=== PATIENT | male | born 1955 | race African-American/Black ===

== ENCOUNTER 2023-06-23 16:45 | Inpatient (IN) | payer MEDICARE, OTHER, SELFPAY ==
[2023-06-23] VITALS (10 sets, daily range): BP systolic 101–141; BP diastolic 42–119; PULSE 86; BMI 22.1; BMI 22.2
[2023-06-23 13:45] LABS: % Basophils 0.7 % (0-2); % Eosinophils 4.4 % (0-6); % Immature Granulocytes 0.6 % (0-0.5); % Lymphocytes 11.3 % (20.5-51.1); % Monocytes 6.4 % (1.7-9.3); % Neutrophils 76.6 % (42.2-75.2); Absolute Basophils 0.1 10^3/uL (0-0.2); Absolute Eosinophils 0.4 10^3/uL (0-0.7); Absolute Immature Granulocytes 0.1 10^3/uL (0-0.05); Absolute Monocytes 0.5 10^3/uL (0.1-0.6); Absolute Neutrophils 6.5 10^3/uL (1.4-6.5); Hemoglobin 11.7 g/dL (13.0-18.0); Mean Corp Hgb Conc. 34.4 g/dL (33.0-37.0); Mean Corpuscular Hgb 29.5 pg (27.0-31.0); Mean Corpuscular Volume 85.9 fL (80.0-94.0); Mean Platelet Volume 10.8 fL (7.4-10.4); Nucleated Red Blood Cells % 0 % (-); Platelet Count 226 10^3/uL (130-400); Red Blood Cell Count 3.96 10^6/uL (4.70-6.10); Red Cell Dist. Width 13.5 % (11.5-14.5); White Blood Cell Count 8.4 10^3/uL (4.8-10.8)
[2023-06-23 14:01] LABS: ALT (SGPT) 53 U/L (0-50); AST (SGOT) 44 U/L (17-59); Albumin 4.1 g/dl (3.5-5.0); Alkaline Phosphatase 134 U/L (38-126); Blood Urea Nitrogen 9 mg/dl (9-20); Calcium 9.2 mg/dl (8.4-10.2); Carbon Dioxide 24 mmol/L (22-30); Chloride 106 mmol/L (98-107); Estimated Creatinine Clearance 67 ml/min; Glucose 224 mg/dl (70-99); Potassium 3.8 mmol/L (3.5-5.1); Sodium 139 mmol/L (135-145); Total Bilirubin 0.6 mg/dl (0.2-1.3); eGFR > 60.00
--- NOTE | 2023-06-23 14:25 | ED.GENMED ---
History of Present Illness
General
Chief Complaint: Breathing Problem
Source: patient and family
Exam Limitations: none
Time Seen by Provider: 06/23/23 13:12
Nursing documentation reviewed up to this point in time: agreed with
Travel History
Have you had any contact with someone who has COVID-19?: No
Do you have any symptoms of coronavirus? Fever > 100 degrees, chills, cough, shortness of breath, sore throat, loss of taste or smell, muscle aches, or headache?: Yes
Symptoms:: cough
History of Present Illness
History of Present Illness:
Patient was diagnosed with COVID-19 infection last week, recently completed 5-day course of Paxlovid, presents to ED secondary to persistent cough along with increased work of breathing, as well as decreased appetite. Denies headache. Denies
dizziness. Denies chest pain. Denies back pain. Denies leg pain or swelling.
Past History
Past History
ED Past Medical History: Arrthythmia, Asthma, CAD, CHF, CVA (With left-sided residual weakness), HTN, Hypercholesterolemia, NIDDM, [place], Psychiatric (Depression) and Other (Chronic kidney disease, GI bleed)
ED Past Surgical History: Cardiac (Pacemaker defibrillator, CABG)
Social History
Tobacco: Smoker
Alcohol: Occasional
Drug: None
Personal:
Living: with family
Employment: Disabled
Family History
Family History: CAD
Review of Systems
Review of Systems
Allergies reviewed?: Yes
All Other Systems: ROS reviewed and negative except as documented in HPI and ROS
Constitutional: Reports no symptoms; Denies fever
EENT: Reports no symptoms
Respiratory: Reports cough and trouble breathing
Cardiac: Reports no symptoms
ABD/GI: Reports no symptoms; Denies vomiting or diarrhea
: Reports no symptoms
Musculoskeletal: Reports no symptoms
Skin: Reports no symptoms
Neurological: Reports no symptoms; Denies dizzy or headache
Phy Exam
Physical Exam
Physical Exam:
Physical Exam
General: mild respiratory distress, not acutely ill. afebrile. hypoxic
Head: nc/at. eomi
Neck: supple. no meningeal signs.
Heart: s1/s2 regular rate and rhythm, no murmur. equal radial pulses.
Lungs: mild respiratory distress. diminished breath sounds bilaterally
Abdomen: normal bowel sounds. not tender.
Neuro: alert and oriented. no focal neurological deficits
Skin: no rash
Psychiatric: well kept. interactive and cooperative
Extremities: no edema. no calf tenderness.
Scores
Heart Failure Risk
Heart Failure Risk Score: Yes
History of Stroke or TIA: No
History of intubation for respiratory distress: No
Heart rate on ED arrival >/= 110: No
SaO2 <90% on arrival on room air: Yes
HR >/=110 during 3min walk test (or too ill to perform test): No
ECG has acute ischemic changes: No
Urea >/=12mmol/L (BUN 33.6mg/dL): No
Serum CO2>/=35mmol/L: No
Troponin I or T elevated to [place] Level (0.4mg/dL): No
NT-proBNP >/=5,000ng/L (5,000pg/ml): No
HF Risk Score: 1
Admission Status: MEDIUM RISK 5.1% Consider observation or discharge to home with homecare & f/u visit to PCP/Client Technical Support Associate, or SNF for treatment
Course
Orders/Labs/Results
Orders:
Orders
06/23/23 13:16
EKG [Electrocardiogram (*1)] Urgent
Reason for Study: Shortness of Breath
EKG- Treatment ONCE
06/23/23 13:30
BNP [NT-proBNP] Urgent
Complete Blood Count/With Diff Urgent
Comprehensive Metabolic Panel Urgent
Troponin I Urgent
06/23/23 13:33
CR Chest - 2 Views Urgent
Comment:
Reason For Exam: cough/sob/hypoxic
06/23/23 14:43
Furosemide [Lasix] 40 mg IV NOW STA
06/23/23 Dinner
2000 calorie (17 carb) Diabetic
At Your Request: Full Participation
Diabetic Diet: Sodium, 2 Gram
06/23/23 16:20
Code Status As Directed
Resuscitation Status: Full Code
Activity As Directed
Activity Level: With Assistance
Intake/ Output As Directed
Frequency: Per unit guidelines
Patient Education As Directed
Type: CHF folder
Comment: give on admission. Document in Interdisciplinary Education record
Vital Signs As Directed
Frequency: Other
Additional Instructions:: Q12 or per unit guidelines if more frequent.
Weight As Directed
Frequency: Daily
Type of Scale: Standing Scale
Comment: Daily morning weight. If unable to stand, use balanced bed scale.
Weight As Directed
Frequency: Once
Type of Scale: Standing Scale
Comment: Upon Admission. If unable to stand, use balanced bed scale.
O2 Therapy [RESP] Routine
Nasal Cannula Liter Flow: 2 LPM
Titrate/Wean O2 to maintain O2 sat greater than (%): 93
Pulse Ox/cont/shift [RESP] Routine
Quantity: 1
Special Instructions: Daily pulse oximetry at rest. If greater than 92% at rest also obtain pulse oximetry
while ambulating as tolerated.
DX Deep Vein Thrombosis Video Routine
06/23/23 16:23
Admit/Transfer Patient As Directed
Co-Sign Provider:
Level of Care: Inpatient admission
Assign to:: Telemetry
Physician / Group: Hospitalist
Diagnosis: CHF exacerbation with hypoxia
Reason for Telemetry: Acute Heart Failure
Date to Stop Telemetry: 06/26/23
Time to Stop Telemetry: 11:00
Reason for Hospitalization: CHF exacerbation, hypoxemia
Expected length of stay greater than two midnights?: Yes
ELOS- Estimated Length of Stay in days: 2
I certify the patient meets the requirements for IP care: Yes
06/23/23 16:31
Potassium Chloride Powder [Klor-Con] 20 meq PO NOW STA
06/23/23 17:40
Insulin Aspart Corrective Low [Novolog Flexpen-Low Resistance] See Protocol SC AC
06/23/23 17:40
Bedside Glucose Monitoring As Directed
Frequency: AC&HS
Cpap [RESP] Routine
Patient to use own unit?: No
Set Pressure (cm H2O): 5
06/23/23 17:44
Troponin I Q6H
Comment: at admission & every 6 hours x 2 (3 total), ECG to be done with each level
06/23/23 18:00
Atorvastatin [Lipitor] 40 mg PO QPM
Enoxaparin Sodium [Lovenox] 40 mg SC QPM
Famotidine [Pepcid] 40 mg PO QPM
HydrALAZINE [Apresoline] 25 mg PO QPM
Sitagliptin Phosphate [Januvia] 100 mg PO QPM
06/23/23 20:00
Carvedilol [Coreg] 25 mg PO BID
Venlafaxine [Effexor] 150 mg PO QPM
06/23/23 22:00
Tamsulosin [Flomax] 0.8 mg PO HS
06/23/23 23:40
Troponin I Q6H
Comment: at admission & every 6 hours x 2 (3 total), ECG to be done with each level
06/24/23 06:24
Basic Metabolic Panel IN AM
Magnesium IN AM
Procalcitonin IN AM
PCT Algorithmm Indication: Respiratory
TSH Reflex To Free T4 IN AM
Troponin I Q6H
Comment: at admission & every 6 hours x 2 (3 total), ECG to be done with each level
06/24/23 08:00
Amlodipine [Norvasc] 10 mg PO DAILY
Ascorbic Acid [Vitamin C] 500 mg PO DAILY
Aspirin Chewable [Low Strength Aspirin] 162 mg PO DAILY
Cholecalciferol (Vitamin D3) [VITAMIN D3 (cholecalciferol)] 50 mcg PO DAILY
Dapagliflozin [Farxiga] 10 mg PO DAILY
Furosemide [Lasix] 40 mg IV BID AT 0800,1600
HydrALAZINE [Apresoline] 50 mg PO DAILY
Nitroglycerin [Nitro-Dur] 0.4 mg TRANSDERM DAILY
armodafinil [Nuvigil] 0 mg PO DAILY
06/25/23
Echo 2D MMode Color/Doppler Routine
Reason for Study: heart failure
06/25/23 06:00
Basic Metabolic Panel IN AM
06/26/23 06:00
Basic Metabolic Panel IN AM
06/26/23 11:00
DC Protocol for Telemetry ONCE
Abnormal Lab Results
06/23/23
13:30
RBC 3.96 L 10^6/uL
(4.70-6.10)
Hgb 11.7 L g/dL
(13.0-18.0)
Hct 34.0 L %
(39.0-52.0)
MPV 10.8 H fL
(7.4-10.4)
Abs Immat Gran (auto) 0.1 H 10^3/uL
(0-0.05)
Absolute Lymphs (auto) 1.0 L 10^3/uL
(1.2-3.4)
Immature Gran % 0.6 H %
(0-0.5)
Neutrophils % 76.6 H %
(42.2-75.2)
Lymphocytes % 11.3 L %
(20.5-51.1)
Glucose 224 H mg/dl
(70-99)
ALT 53 H U/L
(0-50)
Alkaline Phosphatase 134 H U/L
(38-126)
Troponin I 0.061 H* ng/ml
06/23/23 13:30
06/23/23 13:30
Vital Signs
Initial and Last Documented VS:
Initial Vital Signs
Temp Pulse Resp BP Pulse Ox
98.5 F 90 16 101/42 99
06/23/23 12:33 06/23/23 12:33 06/23/23 12:33 06/23/23 12:33 06/23/23 12:33
Last Documented Vital Signs
Temp Pulse Resp BP Pulse Ox
98.2 F 89 18 105/75 98
06/24/23 07:10 06/24/23 08:22 06/24/23 07:10 06/24/23 08:22 06/24/23 10:08
MDM/Problems Addressed
MDM/Problems Addressed:
Pulse ox 87%-88% on room air with respiratory distress. Pt placed on supplemental oxygen with improvement in symptoms. Blood work, i.e. proBNP along with chest x-ray suggestive of mild fluid overload, which may be contributing to patient's
presenting hypoxia, along with recent COVID infection. Patient will be admitted for further evaluation treatment, including IV diuresis. Doubt PE as etiology behind his symptoms. However, if his symptoms do not improve, however, potential PE
likely needs to be evaluated further.
*EKG
Interpreted by ED Provider?: Yes
Heart Rate: 83
Rate: normal
Rhythm: sinus
Cl[place]son: normal axis
Interval: normal interval
*Critical Care Note
Total Time (30-74mins, 75-104mins- exclusive of procedures): Not Applicable
ED Attending Note
-
Portions of this chart may have been created with voice recognition software.� Occasional wrong word or��sound alike� substitutions may have occurred due to the inherent limitations of voice recognition software.
Discharge Plan
Departure
Patient Disposition: Admit
Date of Disposition: 06/23/23
Time of Disposition: 14:49
Admit to: Telemetry
Presentation/result/management discussed w/ accepting MD/DO: Hospitalist
Discharge Problem:
Hypoxia, Fluid overload
Interventions
Interventions:
*Risk Screen - Suicide Last Done: 06/23/23 18:13
*General Assessment Last Done: 06/23/23 12:36
*Neglect/Abuse Screening Last Done: 06/23/23 12:36
ED- Fall Risk Assessment Last Done: 06/23/23 13:17
*ED COVID-19 Vaccine History Last Done: 06/23/23 13:17
*Nursing Disposition Last Done: 06/23/23 17:39
ED- Cardiac Assessment Last Done: 06/23/23 13:17
ED- Pulmonary Assessment Last Done: 06/23/23 13:17
Discharge Date and Time
Discharge Date/Time: 06/23/23 17:40
[2023-06-23 14:38] LABS: NT-proBNP 2650 pg/ml; Troponin I 0.061 ng/ml
[2023-06-23] MEDS: LASIX 40 MG IV (15:13)
--- NOTE | 2023-06-23 15:57 | HPS.HSE ---
Family Physician
-
Family Physician: Pearl Ramos
Chief Complaint
-
Worsening shortness of breath
History of Present Illness
Patient is a 67-year-old with a complicated history including coronary disease status post CABG with end-stage coronary disease no intervention will and status post cath last year with EF of 25% and continued aggressive medical management
recommended, diabetes, hypertension, hyperlipidemia, BPH who presents to the ED with exertional dyspnea and shortness of breath after illness with COVID-19 infection last week.
Patient and family keep pain prepped for home oxygen to use as needed exertion prior to last week. However suddenly got more short of breath a week ago and at home test proved positive for COVID. Patient reported to have finished 5-day course of
Paxlovid on Sunday. However since then he has continued to have exertional dyspnea, nonproductive cough and shortness of breath. Is exertional dyspnea is worse with sitting up. He denies chest pain, palpitations, lightheadedness or dizziness.
He denies having any fevers or chills. He has not measured his weight recently but reports that he has been consistent with his diuretic regimen. He denies any increased ankle edema. Spouse also sick with COVID but no other known sick contacts or
recent travels. No measured temperatures at home.
On arrival in the emergency department he was hypoxic to 86% on room air and was 91% on 2 L. He was afebrile, hemodynamically stable with a pulse of 81 and respirate rate of 18. Chest x-ray did showed bilateral small pleural effusions and
cardiomegaly with some interstitial edema. No focal consolidation noted. ECG shows a sensed V paced rhythm at a rate of 83 with a QTc slightly prolonged at 558. Is unchanged from prior. Troponin is slightly elevated at 0.061. CBC is
unremarkable. Chemistries were also within normal limits. His BNP is elevated at over 2600.
Medical History
Past Medical History
Past Medical History: Reports CAD, CHF, HTN, Hypercholesterolemia and NIDDM
Additional Past Medical History:
Paroxysaml atrial fibrillation
S/P PPM/AICD
Past Surgical History: Reports None
Social History
Tobacco: Former Smoker
Alcohol: None
Drug: None
Personal:
Living: With Family
Employment: Disabled
Family History
Family History: Not pertinent
Allergies / Home Medications
Allergies reflects when Allergies were last updated in [facility].
Home Medications with original date entered in [facility]
Allergy/Medication List:
Allergies
Allergy/AdvReac Type Severity Reaction Status Date / Time
NOELLE Inhibitors Allergy Tongue Verified 06/23/23 12:33
Swelling
adhesive Allergy Rash Verified 06/23/23 12:33
enalapril Allergy Swelling Verified 06/23/23 12:33
Home Medications
famotidine 40 mg tablet 40 mg PO QPM Gastrointestinal issue 08/13/12
furosemide 40 mg tablet 40 mg PO DAILY Fluid retention/Swelling 08/13/12
atorvastatin 40 mg tablet 40 mg PO QPM High cholesterol 05/21/15
hydralazine 25 mg tablet 50 mg PO DAILY Blood pressure 05/21/15
aspirin 81 mg chewable tablet 162 mg PO DAILY Blood clot prevention/tx 03/12/16
sitagliptin phosphate 100 mg tablet (Januvia) 100 mg PO QPM Diabetes 09/08/19
amlodipine 10 mg tablet 10 mg PO DAILY Blood pressure 03/08/21
ascorbic acid (vitamin C) 500 mg tablet (Vitamin C) 500 mg PO DAILY Supplement 03/08/21
cholecalciferol (vitamin D3) 50 mcg (2,000 unit) tablet 2,000 units PO DAILY Supplement 03/08/21
dapagliflozin propanediol 10 mg tablet (Farxiga) 10 mg PO DAILY Diabetes 03/08/21
oxycodone-acetaminophen 5 mg-325 mg tablet 1 tab PO TIDPRN PRN moderate pain 03/08/21
potassium chloride 10 mEq tablet,extended release(part/cryst) 10 meq PO QPM Electrolyte Repletion 03/08/21
cholecalciferol (vitamin D3) 25 mcg (1,000 unit) capsule (Vitamin D3) 50,000 unit PO [facility] Supplement 06/22/21
magnesium oxide 500 mg capsule 500 mg PO QPM Supplement 06/22/21
nitroglycerin 0.4 mg/hr transdermal 24 hour patch 0.4 mg transdermal DAILY Heart Disease/Condition 06/22/21
hydralazine 25 mg tablet 25 mg PO QPM 02/08/22
armodafinil 150 mg tablet (Nuvigil) 150 mg PO DAILY Neurological Condition 10/13/22
carvedilol 25 mg tablet 25 mg PO BID Blood Pressure 10/13/22
metformin 1,000 mg tablet 1,000 mg PO BID@0800,1700 10/13/22
tamsulosin 0.4 mg capsule 0.4 mg PO HS Urinary Issue 10/13/22
venlafaxine 100 mg tablet 150 mg PO QPM 06/23/23
Review of Systems
-
History Source: Patient and Family
Constitutional: Reports Fatigue
EENT: Reports No Symptoms
Respiratory: Reports Cough and Trouble Breathing
Cardiac: Reports No Symptoms
Abdomen/GI: Reports No Symptoms
: Reports No Symptoms
Musculoskeletal: Reports No Symptoms
Skin: Reports No Symptoms
Neurological: Reports No Symptoms
Endocrine: Reports No Symptoms
Hematologic/Lymphatic: Reports No Symptoms
Psych: Reports No Symptoms
Physical Exam
Vital Signs
Vital Signs
Temp Pulse Resp BP Pulse Ox
98.5 F 88 18 115/85 97
06/23/23 12:33 06/23/23 15:15 06/23/23 14:16 06/23/23 15:13 06/23/23 15:15
Physical Exam
General: Well Developed and No Apparent Distress
HEENT: NormoCephalic, Anicteric, Moist mucous membranes, PERRLA and Oxygen
Respiratory: Crackles and Decreased Breath Sounds
Cardiac: S1/S2, Regular Rhythm and Other (right sided PPM)
Breast: Deferred by me
GI: Soft, Non Tender and Non Distended
Rectal: Deferred by Provider
Genito-urinary: Deferred by me
Musculoskeletal: No Clubbing, No Cyanosis and No Edema
Skin: Warm
Neuro: AO x 3
Hematologic/Lymphatic: No Lymphadenopathy
Psych: Calm
Laboratory Results
-
06/23/23 13:30
06/23/23 13:30
Laboratory Results
Total Bilirubin 0.6 mg/dl (0.2-1.3) 06/23/23 13:30
AST 44 U/L (17-59) 06/23/23 13:30
ALT 53 U/L (0-50) H 06/23/23 13:30
Alkaline Phosphatase 134 U/L (38-126) H 06/23/23 13:30
Troponin I 0.061 ng/ml H* 06/23/23 13:30
pro-BNP = 2650
Data Reviewed
-
Diagnostic Radiology: Image Personally Visualized and interpreted and Report Reviewed by me
Medical Tests (Nuc Med, Echo, EKG etc): Image Personally Visualized and interpreted
Lab Data: Labs Reviewed by me
Old Records: Reviewed
Impression/Plan
-
IMPRESSION:
This is a 67-year-old with advanced CAD, CHF EF of 25% and apical akinesis, hypertension, hyperlipidemia, diabetes and BPH presenting to the emergency department with a few days of dyspnea on exertion, conversational dyspnea, cough and shortness of
breath. He is status post COVID-19 infection 1 week ago and has finished a 5-day course of Paxlovid. Evaluation in the ED shows hypoxia to 86% on room air, x-ray with pulmonary interstitial edema and small bilateral pleural effusions, exam with
crackles and elevated JVD but no peripheral edema. Labs notable for a BNP of 2000 653 troponin of 0.061. ECG is nonischemic with a sensed V paced rhythm unchanged from prior. He has no complaints of chest pain. Suspect SOB is due to CHF
exacerbation but cannot rule out post-viral pneumonia and post covid syndrome.
PLAN:
1. CHF Exacerbation - Known EF of 25 % on GDMT. Here w/ hypoxia, pleural effusions, interstitial edema, elevated JVD, elevated BNP. Oxygenating at 97-100% on 2 L at rest without signs of dysnpnea. Mild/moderate volume overload suspected.
- admit to telemetry
- initiate lasix 40mg iv bid for now
- echo was > 6 months, so will repeat one now
- daily weights and i/os
- continue GDMT with carvedilol, hydralazine, farxiga
- continue norvasc per home regimen.
2. Troponin elevation - Suspect mild demand ischemia vs non-cardiac trop. No chest pain or ECG changes concerning for ischemia
- continue aspirin and statin
- ntg patch
- trend troponins for now
- echo
- hold off on cardiology consult for now
3. Pneumonia - No focal consolidation, fevers, productive cough or leukocytosis. Unlikely post viral pneumonia. No cough while examining patient at bedside
- check procalcitonin, lactate levels
- hold abx unless febrile, then obtain blood cultures and start abx
4. DM II -
- continue farxiga and januvia
- hold metformin for now
- sliding scale insulin
5. BPH
- continue tamsulosin
6. ROCKY
- CPAP HS
DVT PPX - Lovenox SQ
Full Code
[2023-06-23] MEDS: KLOR-CON 20 MEQ PO (17:16)
[2023-06-23 17:56] LABS: Glucose - Point of Care 182 mg/dl (70-99)
--- NOTE | 2023-06-23 18:00 | PTCARENOTE ---
Pt arrived to 405-2 at this time, pt AAOx3, chronic pain that is tolerable of right shoulder and posterior neck that is tolerable to pt. V-paced on telemetry, HR 90s. See shift assessment of further detail. Oriented pt and his son to , ordering
meals, plan of care, heart failure education, using call berger, reporting concerns, etc. Call berger within reach, will monitor.
[2023-06-23 18:16] LABS: Troponin I 0.071 ng/ml
[2023-06-23] MEDS: EFFEXOR 150 MG PO (18:52)
[2023-06-23] MEDS: JANUVIA 100 MG PO (18:52)
[2023-06-23] MEDS: NOVOLOG FLEXPEN-LOW RESISTANCE 1 UNITS SC (18:52)
[2023-06-23] MEDS: LIPITOR 40 MG PO (18:52)
[2023-06-23] MEDS: PEPCID 40 MG PO (18:52)
[2023-06-23] MEDS: APRESOLINE 25 MG PO (18:52)
[2023-06-23] MEDS: LOVENOX 40 MG SC (18:53)
[2023-06-23] MEDS: COREG 25 MG PO (20:55)
[2023-06-23] MEDS: FLOMAX 0.800000000000000044 MG PO (21:03)
[2023-06-23 21:56] LABS: Glucose - Point of Care 188 mg/dl (70-99)
[2023-06-24] MEDS: ROBITUSSIN DM 10 ML PO (00:56)
[2023-06-24 01:31] LABS: Troponin I 0.055 ng/ml
[2023-06-24 03:30] VITALS: BP 115/81
[2023-06-24 06:00] VITALS: BMI 22.3
[2023-06-24 07:10] VITALS: BP 105/75
[2023-06-24 07:16] LABS: Blood Urea Nitrogen 11 mg/dl (9-20); Carbon Dioxide 25 mmol/L (22-30); Chloride 106 mmol/L (98-107); Estimated Creatinine Clearance 75 ml/min; Glucose 177 mg/dl (70-99); Magnesium 1.8 mg/dl (1.6-2.3); Potassium 3.5 mmol/L (3.5-5.1); Sodium 137 mmol/L (135-145); eGFR > 60.00
[2023-06-24 07:26] LABS: Procalcitonin < 0.05 ng/ml (0.0-0.25)
[2023-06-24 07:29] LABS: Troponin I 0.044 ng/ml
[2023-06-24 07:47] LABS: TSH Reflex To Free T4 0.61 uIU/ml (0.47-4.68)
[2023-06-24 07:52] LABS: Glucose - Point of Care 156 mg/dl (70-99)
[2023-06-24] MEDS: APRESOLINE 50 MG PO (08:22)
[2023-06-24] MEDS: NOVOLOG FLEXPEN-LOW RESISTANCE 1 UNITS SC ×2 (08:22→16:18)
[2023-06-24] MEDS: NITRO-DUR 0.400000000000000022 MG TRANSDERM (08:23)
[2023-06-24] MEDS: FARXIGA 10 MG PO (08:23)
[2023-06-24] MEDS: COREG 25 MG PO ×2 (08:23→20:22)
[2023-06-24] MEDS: LOW STRENGTH ASPIRIN 162 MG PO (08:23)
[2023-06-24] MEDS: FLUSH (NSS) 2 FLUSH IV (08:23)
[2023-06-24] MEDS: LASIX 40 MG IV ×2 (08:23→16:19)
[2023-06-24] MEDS: VITAMIN C 500 MG PO (08:24)
[2023-06-24] MEDS: VITAMIN D3 (cholecalciferol) 50 MCG PO (08:24)
[2023-06-24] MEDS: NORVASC 10 MG PO (08:24)
--- NOTE | 2023-06-24 10:30 | CM ---
CM met with pt at bedside.
Pt resides with spouse and 2 grandchildren ages 15 and 16, in a 2SH with 2STE with bedroom and bathroom/shower on 2nd floor. CO on first.
Pt uses CPAP HS, not on home oxygen. Does not recall name of DME supplier. Pt ambulating with cane since getting Covid. Currently on room air.
Confirmed PCP is Pearl Ramos and pharmacy is [facility].
PT has HC and SNF history, does not recall names stating 'there have been so many'.
CM discussed VN with pt. Pt is interested. Offered choice of agency. Preference is for [facility]. CM to send referral now via [facility] for VN with [facility].
Discharge dispo home with [facility].
[2023-06-24 11:34] LABS: Glucose - Point of Care 244 mg/dl (70-99)
[2023-06-24 11:45] VITALS: BP 109/63
[2023-06-24] MEDS: NOVOLOG FLEXPEN-LOW RESISTANCE 2 UNITS SC (12:33)
--- NOTE | 2023-06-24 12:57 | CON.CAR ---
Consultation
Consultation Request
Date/Time Consultation Requested: 06/24/23
Date/Time Consultation Performed: 06/24/23
Requesting Provider: Dr. Joshua
Performing Provider: Dr. Arreola
Reason for Consultation: Shortness of breath
Medical History
-
Chief Complaint: Shortness of breath
History of Present Illness:
Maximiliano is a 67-year-old man with a complex past medical history significant for an ischemic cardiomyopathy status post CABG in 2002 followed by multiple coronary interventions most recently in 2005, VT, Biotronik ICD initially implanted September 2009 with
generator change in June 2021 with RV lead revision and capping of fractured RV lead December 2021. He also has a history of thoracic aortic aneurysm, hypertension, dyslipidemia, type 2 diabetes mellitus, narcolepsy/sleep apnea on CPAP, CVA right
cerebellar artery 2018, history of GI bleed/AVMs, and ongoing intermittent smoking who is followed by Dr. Lane. Reported echocardiogram at [facility], January 27, 2022 showed severe LV systolic dysfunction with a visually estimated
ejection fraction of 25% with moderate to severe mitral regurgitation. His last cardiac catheterization January [address] Jameson found severe multivessel coronary disease with widely patent LANDRY to LAD and interval occlusion of the [place] band ramus
as well as small caliber free radial graft to the diagonal since his last cath in 2013. At the time of that cardiac catheterization, Dr. Jameson did not feel there were good options for revascularization and opted for medical therapy. He had COVID
in August 2019 requiring hospitalization for hypoxia with prolonged recovery and was COVID-positive again last week treated with 5 days Paxlovid, finishing on Sunday. He reports persistent productive cough and shortness of breath. He denies chest
pain or pressure, palpitations, or edema. No lightheadedness, near-syncope or syncope. No ongoing fevers. He has not been checking his weights but has been compliant with his medications including diuretics. In the emergency department he was
found to be hypoxic to 86% on room air which improved on 2 L nasal cannula. Chest x-ray showed bilateral small pleural effusions and interstitial edema but no consolidation. Procalcitonin not elevated. WBC count not elevated. Troponin slightly
elevated 0.061. proBNP 2650.
Past medical history:
CAD s/p CABG x5 2012
Cath 02/08/2022 w/ severe multivessel CADChronic HFrEF
Ischemic CM
Biotronik BiV ICD originally implanted 2009
s/p generator change 06/22/2021
s/p lead revision 12/23/2021h/o VT
Paroxysmal atrial fibrillation
Diabetes mellitus type 2
h/o CVA
Hypertension.
Hyperlipidemia
Obstructive sleep apnea
Thoracic aortic aneurysm
Past surgical history: Rotator cuff repair right, CABG x 5, cardiac catheterizations and stents, defibrillator implanted, generator change and lead revisions
Past Medical History
Past Medical History: Other (See above)
Past Surgical History: Other (See HPI)
Social History
Tobacco: Smoker
Alcohol: None
Drug: None
Personal:
Living: With Family
Employment: Disabled
Family History
Family History: Reviewed & Not Pertinent
Allergies / Home Medications
Allergy/AdvReac Type Severity Reaction Status Date / Time
NOELLE Inhibitors Allergy Tongue Verified 06/23/23 12:33
Swelling
adhesive Allergy Rash Verified 06/23/23 12:33
enalapril Allergy Swelling Verified 06/23/23 12:33
Medication Instructions Recorded Confirmed Type
famotidine 40 mg tablet 40 mg PO QPM Gastrointestinal issue 08/13/12 06/23/23 History
furosemide 40 mg tablet 40 mg PO DAILY Fluid 08/13/12 06/23/23 History
retention/Swelling
atorvastatin 40 mg tablet 40 mg PO QPM High cholesterol 05/21/15 06/23/23 History
hydralazine 25 mg tablet 50 mg PO DAILY Blood pressure 05/21/15 06/23/23 History
aspirin 81 mg chewable tablet 162 mg PO DAILY Blood clot 03/12/16 06/23/23 History
prevention/tx
sitagliptin phosphate 100 mg 100 mg PO QPM Diabetes 09/08/19 06/23/23 History
tablet (Januvia)
amlodipine 10 mg tablet 10 mg PO DAILY Blood pressure 03/08/21 06/23/23 History
ascorbic acid (vitamin C) 500 mg 500 mg PO DAILY Supplement 03/08/21 06/23/23 History
tablet (Vitamin C)
cholecalciferol (vitamin D3) 50 2,000 units PO DAILY Supplement 03/08/21 06/23/23 History
mcg (2,000 unit) tablet
dapagliflozin propanediol 10 mg 10 mg PO DAILY Diabetes 03/08/21 06/23/23 History
tablet (Farxiga)
oxycodone-acetaminophen 5 mg-325 1 tab PO TIDPRN PRN moderate pain 03/08/21 06/23/23 History
mg tablet
potassium chloride 10 mEq 10 meq PO QPM Electrolyte Repletion 03/08/21 06/23/23 History
tablet,extended release(part/cryst)
cholecalciferol (vitamin D3) 25 50,000 unit PO [facility] Supplement 06/22/21 06/23/23 History
mcg (1,000 unit) capsule (Vitamin
D3)
magnesium oxide 500 mg capsule 500 mg PO QPM Supplement 06/22/21 06/23/23 History
nitroglycerin 0.4 mg/hr 0.4 mg transdermal DAILY Heart 06/22/21 06/23/23 History
transdermal 24 hour patch Disease/Condition
hydralazine 25 mg tablet 25 mg PO QPM 02/08/22 06/23/23 History
armodafinil 150 mg tablet (Nuvigil) 150 mg PO DAILY Neurological 10/13/22 06/23/23 History
Condition
carvedilol 25 mg tablet 25 mg PO BID Blood Pressure 10/13/22 06/23/23 History
metformin 1,000 mg tablet 1,000 mg PO BID@0800,1700 10/13/22 06/23/23 History
tamsulosin 0.4 mg capsule 0.4 mg PO HS Urinary Issue 10/13/22 06/23/23 History
venlafaxine 100 mg tablet 150 mg PO QPM 06/23/23 06/23/23 History
Review of Systems
-
History Source: Patient and Family
All other systems: Negative unless noted
Constitutional: Fatigue
EENT: No Symptoms
Respiratory: Cough and Trouble Breathing
Cardiac: No Symptoms
Abdomen/GI: No Symptoms
: No Symptoms
Neurological: No Symptoms
Endocrine: No Symptoms
Hematologic/Lymphatic: No Symptoms
Physical Exam
Vital Signs
Temp Pulse Resp BP Pulse Ox
97.5 F 82 18 109/63 98
06/24/23 11:45 06/24/23 11:45 06/24/23 11:45 06/24/23 11:45 06/24/23 11:45
Lab Results
06/23/23 13:30
06/24/23 06:24
Troponin I 0.044 ng/ml H* 06/24/23 06:24
Adq-S-Ojnxudhkqzg Pept 2650 pg/ml 06/23/23 13:30
Physical Exam
General: Well Developed, Well Nourished, No Apparent Distress and Other (Currently 100% on room air)
HEENT: Normocephalic, Anicteric and Moist Mucous Membranes
Respiratory: Other (Bronchovesicular breath sounds overall clear without wheezes rhonchi's or crackles)
Cardiac: S1/S2, Regular Rhythm, Murmur (2/6 SM) and Other (Device site intact)
GI: Soft, Non Tender, Non Distended and Normal Bowel Sounds
Musculoskeletal: No Edema
Neuro: AO x 3 and Nonfocal/Grossly Intact
Psych: Calm
Impression / Plan
-
Tobacco Dipper: Dr. Lane
Impression:
Hypoxic respiratory insufficiency/dyspnea on exertion with mild volume overload in the setting of recent COVID
COVID-positive status post Paxlovid
Non-ND elevated troponin
CAD s/p CABG x5 2012
Cath 02/08/2022 w/ severe multivessel CAD with occlusion of [place] band ramus as well as free radial graft to the diagonal since cath in 2013 not easily amendable to intervention; plan for medical therapy
Ischemic CM
Biotronik BiV ICD originally implanted 2009
s/p generator change 06/22/2021
s/p lead revision 12/23/2021
h/o VT
Mitral regurgitation, moderate to severe per left heart catheterization 410/
Paroxysmal atrial fibrillation
Diabetes mellitus type 2
h/o CVA
Hypertension.
Hyperlipidemia
Obstructive sleep apnea
Thoracic aortic aneurysm; CTA chest 10/13/2022 with ascending thoracic aorta measuring 4 cm with atherosclerotic disease.
Allergy to NOELLE inhibitor/angioedema
Plan:
Hypoxic respiratory insufficiency/dyspnea on exertion with ongoing cough and mild volume overload/heart failure with reduced ejection fraction decompensation in the setting of recent COVID
-O2 requirements have improved after IV Lasix now on room air
-Continue IV Lasix and anticipate transition to oral Lasix tomorrow
-Weight on admission 150 pounds which appears close to his dry weight
-Will check with [facility] recent echocardiogram to reassess EF/MR; if no recent echocardiogram can repeat tomorrow
-Heart failure diet and monitoring including daily weights
-Continue goal-directed medical therapy with the exception of NOELLE/ARB/ARNI given angioedema with NOELLE inhibitors
Non-ND elevated troponin with known three-vessel coronary artery disease/status post CABG 2012
-No chest pain suggestive of angina
-Continue goal-directed medical therapy
History of paroxysmal atrial fibrillation currently in sinus rhythm
-Not currently on anticoagulation [will review outpatient records likely related to prior GI bleeds]
-Continue aspirin
-Twelve-lead EKG AV paced rhythm
Biotronik BiV ICD with history of VT
-Monitor telemetry
-Continue potassium and magnesium supplementations and follow with diuresis
ROCKY narcolepsy�compliant with home CPAP, continue this hospitalization
Data Reviewed
-
EKG: Tracing Personally Visualized and interpreted
Radiology: Report Reviewed by me
Labs: Labs Reviewed by me
Old Records: Reviewed
--- NOTE | 2023-06-24 14:58 | W.PN.HOSP.TC ---
Today's Communication/Plan
-
Diuresis
Assessment / Plan
Assessment / Plan
67-year-old male with history of coronary disease and CABG came with shortness of breath started a week ago. He had a home test positive for COVID 1 1/2 weeks ago. He finished Paxlovid last Sunday. Continues to have exertional dyspnea
nonproductive cough and shortness of breath. He does not check his weight regularly but has been taking diuretics. In the ER he was 86% on room air chest x-ray with bilateral pleural effusions and interstitial edema. He is off of oxygen now.
Cardiac catheterization-02/08/2022 severe multivessel CAD, widely patent LANDRY to LAD, occlusion of [place] ramus with small caliber free radial graft to the diagonal since prior cath in 2013 elevated filling pressures
Plan was to continue aggressive medical treatment and MAIL SERVICE COORDINATOR therapy for severe ischemic cardiomyopathy. No percutaneous options for revascularization even though stenting of left main into the circumflex was considered but was not pursued because of
the risk /benefits.
On examination
Patient is able to have a conversation without getting short of breath
Cardiovascular system S1-S2.
Chest few rales bilaterally
Abdomen soft and nontender
Extremity no edema
# Acute hypoxic respiratory insufficiency requiring 2 L of oxygen
Likely secondary to CHF exacerbation
Also post COVID hypoxia he is off of oxygen now saturations stable
History of coronary disease with ischemic cardiomyopathy
He normally follows up with Dr. Lane
Update echo
Cardiology evaluation requested
Intake output charting
Salt and fluid restriction
CHF education
Continue Coreg, amlodipine and hydralazine, Farxiga
Patient has allergy to NOELLE inhibitors
#Complex coronary artery disease. History of CABG times 08/2012
Medical management decided 2021
Cath as above
He has known complex coronary artery disease with severe [place] disease, occluded vein grafts to his left circumflex and RCA system and a patent LANDRY to LAD.�
He remains on amlodipine, aspirin, atorvastatin, carvedilol, hydralazine
Unclear why he is on 162 mg of aspirin as opposed to 81 mg-continue
Troponin jjfzkaqvne-syt-RK type
# Paroxysmal atrial fibrillation-continue Coreg
Does not seem to be on anticoagulation
# History of pacemaker/BiV ICD implanted 2009, generator change in 2021
History of VT's
# History of CVA-aspirin, atorvastatin
# Hyperlipidemia-atorvastatin
# Hypertension-continue amlodipine, carvedilol, hydralazine
# Yelvgswn-Rtub-Zidjz sliding scale coverage
Continue Farxiga, Januvia 100 daily, metformin thousand twice daily
# Slightly elevated ALT-follow likely secondary to hepatic congestion
# Narcolepsy-continue Nuvigil after verifying with pharmacy
Patient is very particular about his dose and wants to without failure to avoid any symptoms.
# Sleep apnea-CPAP
# Hepatic steatosis but previous imaging
# Depression-continue Effexor
# Prostate disease-continue Flomax
Advised to see urology as outpatient
He needs rescheduled appointment.
# Ex-smoker
# Ambulatory dysfunction-fall precautions
# DVT prophylaxis-Lovenox
# Full code
Discussed with patient's daughter and also niece at bedside
Discussed with cardiology
Discussed with nursing
Anticipated Discharge: 24 - 48 hours
Subjective/Interval History
-
Date of Service: June 24, 2023
Objective Data
-
Labs:
Laboratory Results
06/24/23
06:24
Sodium 137
Potassium 3.5
Chloride 106
Carbon Dioxide 25
BUN 11
Creatinine 0.9
Glucose 177 H
Calcium 9.0
Vital Signs:
Vital Signs
Temp Pulse Resp BP Pulse Ox
97.5 F 82 18 109/63 98
06/24/23 11:45 06/24/23 11:45 06/24/23 11:45 06/24/23 11:45 06/24/23 11:45
I&O
06/23/23 06/24/23 06/25/23
06:59 06:59 06:59
Output Total 300 / 300
Balance -300 / -300
[2023-06-24] MEDS: NON-FORMULARY ITEM 250 MG PO (15:13)
[2023-06-24 15:20] VITALS: BP 123/71
[2023-06-24 16:06] LABS: Glucose - Point of Care 190 mg/dl (70-99)
[2023-06-24] MEDS: GLUCOPHAGE 1000 MG PO (16:19)
[2023-06-24 16:49] LABS: Glucose - Point of Care 199 mg/dl (70-99)
[2023-06-24] MEDS: EFFEXOR 150 MG PO (17:57)
[2023-06-24] MEDS: DRISDOL (VITAMIN D2) 50000 UNITS PO (17:57)
[2023-06-24] MEDS: APRESOLINE 25 MG PO (17:57)
[2023-06-24] MEDS: PEPCID 40 MG PO (17:58)
[2023-06-24] MEDS: MAGNESIUM OXIDE 500 MG PO (17:58)
[2023-06-24] MEDS: LIPITOR 40 MG PO (17:58)
[2023-06-24] MEDS: LOVENOX 40 MG SC (17:58)
[2023-06-24] MEDS: JANUVIA 100 MG PO (17:58)
[2023-06-24] MEDS: KCL 10 MEQ PO (17:58)
[2023-06-24 19:46] VITALS: BP 121/77
[2023-06-24] MEDS: FLOMAX 0.800000000000000044 MG PO (20:25)
[2023-06-24 23:25] VITALS: BP 114/74
[2023-06-25] MEDS: SILVADENE 1 APPLIC TOPICAL ×2 (00:11→08:44)
[2023-06-25 02:46] LABS: Glucose - Point of Care 136 mg/dl (70-99)
[2023-06-25 03:44] VITALS: BP 130/72
[2023-06-25 06:00] VITALS: BMI 22.3
--- NOTE | 2023-06-25 06:39 | PTCARENOTE ---
Pt able to make his needs known, anxious at times, non complaint with care. Pt refusing for telemetry on saying the stickers make him itch, pt had non sensitive leads on. Pt asking for silver sulfadine cream as that helps him with burning or any
rash. Pt was explained we could change leads again, wash up. Pt refusing for any of it.Pt on a bed alarm, pt getting more agitated when it rings, wants staff to turn it off. Pt has nitro patch in his bag not opened, pt refuses RN to send it to
pharmacy & knows he is getting them in hospital. AGRICULTURAL EQUIPMENT OPERATOR ammonia box tender made aware of all pt complaints & noncomplaint with care.Plan of care continued. Pt call berger in reach.
--- NOTE | 2023-06-25 06:50 | W.PN.HOSP.TC ---
Today's Communication/Plan
-
cont diuresis as per cardio
blood pressure control
glycemic control
daily weights I/O
Assessment / Plan
Assessment / Plan
Physical Exam
General: Appears comfortable at this time no acute distress
Cardiovascular system S1-S2. No murmurs rubs or gallops
Chest: Clear to auscultation b/l
Abdomen: soft and nontender
Extremity: no edema
Neuro: AOx3
67-year-old male with history of coronary disease and CABG came with shortness of breath started a week ago. He had a home test positive for COVID 1 1/2 weeks ago. He finished Paxlovid last Sunday. Continues to have exertional dyspnea
nonproductive cough and shortness of breath. He does not check his weight regularly but has been taking diuretics. In the ER he was 86% on room air chest x-ray with bilateral pleural effusions and interstitial edema. He is off of oxygen now.
Cardiac catheterization-02/08/2022 severe multivessel CAD, widely patent LANDRY to LAD, occlusion of [place] ramus with small caliber free radial graft to the diagonal since prior cath in 2013 elevated filling pressures
Plan was to continue aggressive medical treatment and COLLABORATIVE TEACHER therapy for severe ischemic cardiomyopathy. No percutaneous options for revascularization even though stenting of left main into the circumflex was considered but was not pursued because of
the risk /benefits.
# Acute hypoxic respiratory insufficiency requiring 2 L of oxygen
#Acute on Chronic HFrEF
Also post COVID hypoxia he is off of oxygen now saturations stable
History of coronary disease with ischemic cardiomyopathy
He normally follows up with Dr. Lane
ECHO notes worsening EF 10-15% and worsening valve disease MR and TR mod to severe
Cardiology eval appreciated
Intake output charting
Salt and fluid restriction
CHF education
Continue Coreg, amlodipine and hydralazine, Farxiga
Patient has allergy to NOELLE inhibitors
#Complex coronary artery disease. History of CABG times 08/2012
Medical management decided 2021
Cath as above
He has known complex coronary artery disease with severe [place] disease, occluded vein grafts to his left circumflex and RCA system and a patent LANDRY to LAD.�
He remains on amlodipine, aspirin, atorvastatin, carvedilol, hydralazine
Unclear why he is on 162 mg of aspirin as opposed to 81 mg-continue
Troponin lgjbqsnhgx-cnu-GV type
# Paroxysmal atrial fibrillation-continue Coreg
Does not seem to be on anticoagulation
# History of pacemaker/BiV ICD implanted 2009, generator change in 2021
History of VT's
# History of CVA-aspirin, atorvastatin
# Hyperlipidemia-atorvastatin
# Hypertension-continue amlodipine, carvedilol, hydralazine
# Sisftccq-Spyg-Cdvuz sliding scale coverage
Continue Farxiga, Januvia 100 daily, metformin thousand twice daily
# Slightly elevated ALT-follow likely secondary to hepatic congestion
# Narcolepsy-continue Nuvigil after verifying with pharmacy
Patient is very particular about his dose and wants to without failure to avoid any symptoms.
#BPH
#Urinary incontinence
cont Flomax
urinalysis appreciated no acute abn's
outpatient follow up urology
# Sleep apnea-CPAP
# Hepatic steatosis but previous imaging
# Depression-continue Effexor
# Prostate disease-continue Flomax
Advised to see urology as outpatient
He needs rescheduled appointment.
# Ex-smoker
# Ambulatory dysfunction-fall precautions
# DVT prophylaxis-Lovenox
# Full code
discussed with patient and his daughter.
I spent a total of 55 minutes with the patient or on the floor. More than 50% of this time involved counseling and coordination of care.
Anticipated Discharge: 24 - 48 hours
Subjective/Interval History
-
Date of Service: June 25, 2023
No acute distress sitting up comfortably in chart. Reports overall feeling well.
Objective Data
-
Labs:
Laboratory Results
06/25/23
06:00
Sodium Pending
Potassium Pending
Chloride Pending
Carbon Dioxide Pending
BUN Pending
Creatinine Pending
Glucose Pending
Calcium Pending
Total Bilirubin Pending
AST Pending
ALT Pending
Alkaline Phosphatase Pending
Vital Signs:
Vital Signs
Temp Pulse Resp BP Pulse Ox
97.7 F 80 18 130/72 96
06/25/23 03:44 06/25/23 03:44 06/25/23 03:44 06/25/23 03:44 06/25/23 03:44
I&O
06/23/23 06/24/23 06/25/23
06:59 06:59 06:59
Intake Total 900 / 900
Output Total 300 / 300 1325 / 1325
Balance -300 / -300 -425 / -425
[2023-06-25 07:28] LABS: Glucose - Point of Care 181 mg/dl (70-99)
[2023-06-25 07:45] VITALS: BP 136/75
[2023-06-25] MEDS: NOVOLOG FLEXPEN-LOW RESISTANCE 1 UNITS SC ×2 (08:38→12:55)
[2023-06-25 08:40] LABS: ALT (SGPT) 38 U/L (0-50); AST (SGOT) 24 U/L (17-59); Albumin 3.9 g/dl (3.5-5.0); Alkaline Phosphatase 117 U/L (38-126); Blood Urea Nitrogen 14 mg/dl (9-20); Calcium 9.3 mg/dl (8.4-10.2); Carbon Dioxide 25 mmol/L (22-30); Chloride 98 mmol/L (98-107); Direct Bilirubin 0.1 mg/dl (0.0-0.4); Estimated Creatinine Clearance 61 ml/min; Glucose 185 mg/dl (70-99); Magnesium 1.8 mg/dl (1.6-2.3); Potassium 3.6 mmol/L (3.5-5.1); Sodium 137 mmol/L (135-145); Total Bilirubin 0.7 mg/dl (0.2-1.3); Total Protein 6.8 g/dl (6.3-8.2); eGFR > 60.00
[2023-06-25] MEDS: APRESOLINE 50 MG PO (08:40)
[2023-06-25] MEDS: NON-FORMULARY ITEM 250 MG PO (08:40)
[2023-06-25] MEDS: FARXIGA 10 MG PO (08:42)
[2023-06-25] MEDS: GLUCOPHAGE 1000 MG PO ×2 (08:42→16:51)
[2023-06-25] MEDS: COREG 25 MG PO ×2 (08:42→20:10)
[2023-06-25] MEDS: LASIX 40 MG IV ×2 (08:43→16:51)
[2023-06-25] MEDS: LOW STRENGTH ASPIRIN 162 MG PO (08:44)
[2023-06-25] MEDS: VITAMIN C 500 MG PO (08:44)
[2023-06-25] MEDS: VITAMIN D3 (cholecalciferol) 50 MCG PO (08:44)
[2023-06-25] MEDS: NORVASC 10 MG PO (08:44)
[2023-06-25] MEDS: NITRO-DUR 0.400000000000000022 MG TRANSDERM (08:45)
--- NOTE | 2023-06-25 08:53 | W.PN.CARDCBS ---
Today's Communication / Plan
-
Switch to oral furosemide 40 mg twice daily, was once daily
Await echocardiogram
Discharge planning
Impression / Plan
-
Nuclear Medicine Pet Ct Technologist: Dr. Lane
Impression:
Hypoxic respiratory insufficiency/dyspnea on exertion with mild volume overload in the setting of recent COVID
COVID-positive status post Paxlovid
Non-ME elevated troponin
CAD s/p CABG x5 2012
Cath 02/08/2022 w/ severe multivessel CAD with occlusion of [place] ramus as well as free radial graft to the diagonal since cath in 2013 not easily amendable to intervention; plan for medical therapy
Ischemic CM
Biotronik BiV ICD originally implanted 2009
s/p generator change 06/22/2021
s/p lead revision 12/23/2021
h/o VT
Mitral regurgitation, moderate to severe per left heart catheterization 410/22
Paroxysmal atrial fibrillation
Diabetes mellitus type 2
h/o CVA
Hypertension.
Hyperlipidemia
Obstructive sleep apnea
Thoracic aortic aneurysm; CTA chest 10/13/2022 with ascending thoracic aorta measuring 4 cm with atherosclerotic disease.
Allergy to NOELLE inhibitor/angioedema
Plan:
Multifactorial dyspnea acute on chronic HFrEF with recent COVID infection -appears improved. Await echocardiogram for assessment of EF. Will switch to oral furosemide 40 mg twice daily
Non-ME troponin elevation -would not pursue at this time
CAD with ischemic cardiomyopathy -await echocardiogram
ICD -Biotronik, noted
Okay to proceed with discharge planning from cardiac standpoint
Progress Note - Nuclear Medicine Pet Ct Technologist
Subjective
Date of Service: June 25, 2023:
No obvious complaints, very tangential, will not answer questions directly no acute distress
Allergies: NOELLE inhibitors, latex
Home meds: Amlodipine 10 mg a day, dividual,, aspirin 162 mg daily, atorvastatin 40 mg a day, carvedilol 25 mg twice daily, dapagliflozin 10 mg a day, Pepcid, furosemide 40 mg a day, hydralazine 50 mg a.m. and 25 mg p.m., Januvia, metformin,
nitroglycerin patch 0.4 mg/h, potassium 10 mill equivalents daily, venlafaxine, tamsulosin 0.4 mg at bedtime
Current medications amlodipine 10 mg a day, Nuvigil 250 mg a day, aspirin 162 mg a day, atorvastatin 40 mg a day, carvedilol 25 mg twice daily, Farxiga 10 mg a day, Pepcid 40 mg a day, hydralazine 50 mg a.m. and 25 mg p.m., Nitropatch 0.4 mg/h,
Sitagliptin, tamsulosin, subcu Lovenox, 40 mg IV furosemide twice daily, insulin, magnesium, potassium 10 mill equivalents daily
PMH/PSH/FH/SH: Reviewed
ROS negative except as above
BUN and creatinine 14 and 1.1, potassium 3.6, Troponin was 0.044, proBNP 2650
ECG sinus rhythm with ventricular pacing
Chest x-ray cardiomegaly, ICD with LV lead and abandon RV lead as well
Objective
Labs:
06/23/23 13:30
06/25/23 06:53
Labs
Hgb 11.7 g/dL (13.0-18.0) L 06/23/23 13:30
Hct 34.0 % (39.0-52.0) L 06/23/23 13:30
Plt Count 226 10^3/uL (130-400) 06/23/23 13:30
Sodium 137 mmol/L (135-145) 06/25/23 06:53
Potassium 3.6 mmol/L (3.5-5.1) 06/25/23 06:53
BUN 14 mg/dl (9-20) 06/25/23 06:53
Creatinine 1.1 mg/dL (0.7-1.3) 06/25/23 06:53
Glucose 185 mg/dl (70-99) H 03/04/24 06:53
Troponins
06/23/23 06/23/23 06/24/23
13:30 17:44 00:54
Troponin I 0.061 H* 0.071 H* 0.055 H*
06/24/23
06:24
Troponin I 0.044 H*
Vital Signs and I&O:
Vital Signs
Temp Pulse Resp BP Pulse Ox
36.3 C 86 18 136/75 98
06/25/23 07:45 06/25/23 08:44 06/25/23 07:45 06/25/23 08:44 06/25/23 08:36
Vital Signs
Temp Pulse Resp BP Pulse Ox
36.3 C 86 18 136/75 98
06/25/23 07:45 06/25/23 08:44 06/25/23 07:45 06/25/23 08:44 06/25/23 08:36
Intake & Output
06/23/23 06/24/23 06/25/23 06/26/23
07:59 07:59 07:59 07:59
Intake Total 900 / 900
Output Total 300 / 300 1325 / 1325
Balance -300 / -300 -425 / -425
Physical Exam
Physical Exam
136/75, pulse 86, intake and output -0.4 L, weight is 68.5 kg, unchanged
He appears comfortable
Head neck exam unremarkable, lungs are relatively clear, regular rate and rhythm without obvious murmurs JVD okay, extremities without edema distal pulses palpable slightly diminished, abdomen benign
[2023-06-25 10:45] VITALS: BMI 22.3
[2023-06-25 11:25] VITALS: BP 111/71
[2023-06-25 11:35] LABS: Glucose - Point of Care 189 mg/dl (70-99)
[2023-06-25] MEDS: KCL 40 MEQ PO (12:17)
[2023-06-25 15:34] VITALS: BP 124/99
--- NOTE | 2023-06-25 15:59 | PTCARENOTE ---
Pt AAO x3, RAMIRES, OOB to chair/ambulates in room with minimal assistance; occ uses cane; denies weakness/dizziness. Call for assistance if needed. VSS. Pt refusing telemetry d/t skin irritation from monitor leads. On room air- pulse ox 99%, no c/o
SOB. Abd soft, osito PO well. Voids lt phong urine in urianl; aware of need for UA reflex cx. Resting in bed at present. Will continue to monitor.
[2023-06-25 16:41] LABS: Glucose - Point of Care 220 mg/dl (70-99)
[2023-06-25] MEDS: NOVOLOG FLEXPEN-LOW RESISTANCE 2 UNITS SC (16:51)
[2023-06-25] MEDS: EFFEXOR 150 MG PO (17:50)
[2023-06-25] MEDS: MAGNESIUM OXIDE 500 MG PO (17:50)
[2023-06-25] MEDS: JANUVIA 100 MG PO (17:50)
[2023-06-25] MEDS: APRESOLINE 25 MG PO (17:50)
[2023-06-25] MEDS: LIPITOR 40 MG PO (17:50)
[2023-06-25] MEDS: PEPCID 40 MG PO (17:51)
[2023-06-25] MEDS: LOVENOX 40 MG SC (17:51)
[2023-06-25 18:43] LABS: Urine Albumin Negative (Neg - Trace); Urine Bilirubin Negative (Negative); Urine Character Clear (Clear); Urine Color Yellow; Urine Glucose 3+ (Negative); Urine Ketone Trace (Negative); Urine Leukocyte Negative (Negative); Urine Nitrite Negative (Negative); Urine Occult Blood Negative (Negative); Urine Urobilinogen Negative (Neg - 1+); Urine pH 6.5 (5.0-9.0)
[2023-06-25 19:00] VITALS: BP 106/78
[2023-06-25] MEDS: FLOMAX 0.800000000000000044 MG PO (20:10)
[2023-06-25 21:23] LABS: Glucose - Point of Care 182 mg/dl (70-99)
[2023-06-25 23:37] VITALS: BP 103/64
[2023-06-26 03:32] VITALS: BP 105/41
[2023-06-26 06:00] VITALS: BMI 21.9
[2023-06-26 06:56] LABS: Blood Urea Nitrogen 14 mg/dl (9-20); Calcium 9.2 mg/dl (8.4-10.2); Carbon Dioxide 24 mmol/L (22-30); Chloride 102 mmol/L (98-107); Estimated Creatinine Clearance 47 ml/min; Glucose 130 mg/dl (70-99); Potassium 3.9 mmol/L (3.5-5.1); Sodium 136 mmol/L (135-145); eGFR 54.41
[2023-06-26 07:05] LABS: Glucose - Point of Care 107 mg/dl (70-99)
[2023-06-26 07:53] VITALS: BP 108/68
--- NOTE | 2023-06-26 07:53 | W.PN.HOSP.TC ---
Addendum entered and electronically signed by Gautam Parham MD 06/28/23 01:55:
hypoxic respiratory failure likely due to combination recent COVID and acute on chronic HFrEF since resolved with increased diuresis
Addendum entered and electronically signed by Gautam Parham MD 06/27/23 00:06:
Pneumonia Ruled Out
Original Note:
Today's Communication/Plan
-
discharge
Assessment / Plan
Assessment / Plan
Physical Exam
General: Appears comfortable at this time no acute distress
Cardiovascular system S1-S2. No murmurs rubs or gallops
Chest: Clear to auscultation b/l
Abdomen: soft and nontender
Extremity: no edema
Neuro: AOx3
67-year-old male with history of coronary disease and CABG came with shortness of breath started a week ago. He had a home test positive for COVID 1 1/2 weeks ago. He finished Paxlovid last Sunday. Continues to have exertional dyspnea
nonproductive cough and shortness of breath. He does not check his weight regularly but has been taking diuretics. In the ER he was 86% on room air chest x-ray with bilateral pleural effusions and interstitial edema. He is off of oxygen now.
Cardiac catheterization-02/08/2022 severe multivessel CAD, widely patent LANDRY to LAD, occlusion of [place] ramus with small caliber free radial graft to the diagonal since prior cath in 2013 elevated filling pressures
Plan was to continue aggressive medical treatment and DRAFTER (CAD) ELECTRONIC therapy for severe ischemic cardiomyopathy. No percutaneous options for revascularization even though stenting of left main into the circumflex was considered but was not pursued because of
the risk /benefits.
# Acute hypoxic respiratory insufficiency requiring 2 L of oxygen
#Acute on Chronic HFrEF
Also post COVID hypoxia he is off of oxygen now saturations stable
History of coronary disease with ischemic cardiomyopathy
He normally follows up with Dr. Lane
ECHO notes worsening EF 10-15% and worsening valve disease MR and TR mod to severe
Cardiology eval appreciated increased lasix to 40 mg BID, per cardiology's discussion with interventional cardiology no invasive intervention recommended at this time. Outpatient follow up with patient's cornice maker recommnended
Intake output charting
Salt and fluid restriction
CHF education
Continue Coreg, amlodipine and hydralazine, Farxiga
Patient has allergy to NOELLE inhibitors
#Complex coronary artery disease. History of CABG times 08/2012
Medical management decided 2021
Cath as above
He has known complex coronary artery disease with severe [place] disease, occluded vein grafts to his left circumflex and RCA system and a patent LANDRY to LAD.�
He remains on amlodipine, aspirin, atorvastatin, carvedilol, hydralazine
Unclear why he is on 162 mg of aspirin as opposed to 81 mg-continue
Troponin chrfdrsclz-miq-GE type
# Paroxysmal atrial fibrillation-continue Coreg
Does not seem to be on anticoagulation
# History of pacemaker/BiV ICD implanted 2009, generator change in 2021
History of VT's
# History of CVA-aspirin, atorvastatin
# Hyperlipidemia-atorvastatin
# Hypertension-continue amlodipine, carvedilol, hydralazine
# Ddvfjadh-Evac-Myeow sliding scale coverage
Continue Farxiga, Januvia 100 daily, metformin thousand twice daily
# Slightly elevated ALT-follow likely secondary to hepatic congestion
# Narcolepsy-continue Nuvigil after verifying with pharmacy
Patient is very particular about his dose and wants to without failure to avoid any symptoms.
#BPH
#Urinary incontinence
cont Flomax
urinalysis appreciated no acute abn's
outpatient follow up urology
# Sleep apnea-CPAP
# Hepatic steatosis but previous imaging
# Depression-continue Effexor
# Prostate disease-continue Flomax
Advised to see urology as outpatient
He needs rescheduled appointment.
# Ex-smoker
# Ambulatory dysfunction-fall precautions
# DVT prophylaxis-Lovenox
# Full code
Discussed with patient mild Cr elevation 1.4 recommending additional night stay to ensure improving before discharge with hold on lasix for tonight. Patient refusing, AOx3 at capacity to make his own medical decisions at this time, prefers to be
discharged.
Otherwise Medically stable for discharge home with home services and outpatient follow up recommendations with close follow up lab work- results to be forwarded to patient's primary care care provider and his cornice maker (script provided to
facilitate).
discussed with patient his daughters and
Total Time Preparing Discharge ___50____ minutes including examination of the patient, summary of the hospital stay, instructions for continuing care to all relevant caregivers; and preparation of discharge records, prescriptions, and referral
forms if necessary.
Anticipated Discharge: Today
Subjective/Interval History
-
Date of Service: June 26, 2023
Seen and examined at bedside in no acute distress sitting up comfortably in bed. Denies new acute issues at this time. Non-labored respiration. family present during evaluation. Patient reports overall feeling well. Eager to go home.
Objective Data
-
Labs:
Laboratory Results
06/26/23
05:15
Sodium 136
Potassium 3.9
Chloride 102
Carbon Dioxide 24
BUN 14
Creatinine 1.4 H
Glucose 130 H
Calcium 9.2
Vital Signs:
Vital Signs
Temp Pulse Resp BP Pulse Ox
97.5 F 82 20 105/41 99
06/26/23 03:32 06/26/23 03:32 06/26/23 03:32 06/26/23 03:32 06/26/23 03:32
I&O
06/25/23 06/26/23 06/27/23
06:59 06:59 06:59
Intake Total 900 / 900 870 / 870
Output Total 1325 / 1325 875 / 875
Balance -425 / -425 -5 / -5
[2023-06-26] MEDS: NOVOLOG FLEXPEN-LOW RESISTANCE SC (08:22)
[2023-06-26] MEDS: COREG 25 MG PO (08:22)
[2023-06-26] MEDS: APRESOLINE 50 MG PO (08:23)
[2023-06-26] MEDS: LOW STRENGTH ASPIRIN 162 MG PO (08:23)
[2023-06-26] MEDS: NORVASC 10 MG PO (08:23)
[2023-06-26] MEDS: FARXIGA 10 MG PO (08:23)
[2023-06-26] MEDS: VITAMIN D3 (cholecalciferol) 50 MCG PO (08:24)
[2023-06-26] MEDS: GLUCOPHAGE 1000 MG PO ×2 (08:24→17:28)
[2023-06-26] MEDS: NITRO-DUR 0.400000000000000022 MG TRANSDERM (08:24)
[2023-06-26] MEDS: VITAMIN C 500 MG PO (08:24)
[2023-06-26] MEDS: LASIX 40 MG PO (08:24)
[2023-06-26] MEDS: KCL 20 MEQ PO (08:24)
[2023-06-26] MEDS: NON-FORMULARY ITEM 250 MG PO (08:25)
[2023-06-26] MEDS: SILVADENE 1 APPLIC TOPICAL (08:28)
--- NOTE | 2023-06-26 09:24 | PN.CDI ---
CDI
- -
CDI:
Physician Documentation Request
Admit Date: 06/23/23 16:45
Dear Doctor Dione,
Please review the following and provide your response in the progress notes.
Clinical Indicators:
The diagnosis of pneumonia was documented on 3/2 H&P but is not consistently noted in subsequent documentation.
- 3/2 H&P 'Pneumonia - No focal consolidation, fevers, productive cough or leukocytosis. Unlikely post viral pneumonia'
- No abx given
Please clarify the following:
____ - Pneumonia was present on admission and is now resolved.
____ - Pneumonia was present on admission and is still being monitored, evaluated or treated
____ - Pneumonia was ruled out
____ - Pneumonia is still a likely, suspected, probable diagnosis
____ - Other
Use of terms such as suspected, likely, concern for, or probable (associated with a specific diagnosis that is being evaluated, monitored, or treated as if it exists) are acceptable and can be coded in the inpatient setting, when documented at the
time of discharge.
Thank you,
Feliz Celestin RN
CDI Specialist
Please use your independent medical judgment in providing your response.
[2023-06-26 11:28] VITALS: BP 89/59
[2023-06-26 11:57] LABS: Glucose - Point of Care 182 mg/dl (70-99)
--- NOTE | 2023-06-26 11:58 | W.PN.CARDCBS ---
Today's Communication / Plan
-
Switched to PO lasix, volume status appears reasonable, would continue 40mg BID as planned
Cont medical management of MV CAD - ASA/statin/BB/CCB
Impression / Plan
-
Medical Office Receptionist Assistant: Dr. Lane
Impression:
Hypoxic respiratory insufficiency/dyspnea on exertion with mild volume overload in the setting of recent COVID
COVID-positive status post Paxlovid
Non-VT elevated troponin
CAD s/p CABG x5 2012
Cath 02/08/2022 w/ severe multivessel CAD with occlusion of [place] ramus as well as free radial graft to the diagonal since cath in 2013 not easily amendable to intervention; plan for medical therapy
Ischemic CM
Biotronik BiV ICD originally implanted 2009
s/p generator change 06/22/2021
s/p lead revision 12/23/2021
h/o VT
Mitral regurgitation, moderate to severe per left heart catheterization 410/
Paroxysmal atrial fibrillation
Diabetes mellitus type 2
h/o CVA
Hypertension.
Hyperlipidemia
Obstructive sleep apnea
Thoracic aortic aneurysm; CTA chest 10/13/2022 with ascending thoracic aorta measuring 4 cm with atherosclerotic disease.
Allergy to NOELLE inhibitor/angioedema
Plan:
Multifactorial dyspnea - acute on chronic HFrEF and recent COVID infection
EF 10-15% which has declined from 25-30% on prior echo
Volume status is reasonable, not reporting SOB or orthopnea, switched to PO lasix 40 mg twice daily
Cont SGLT
Consider aldactone
MV CAD ischemic cardiomyopathy
Non-VT troponin elevation
Cont ASA, high intensity statin. Cont Coreg and amlodipine as anti-anginals.
ICD -Biotronik, noted
Progress Note - Medical Office Receptionist Assistant
Subjective
Date of Service: June 26, 2023
No acute overnight events. Resting comfortably in bed. Tells me not having shortness of breath, orthopnea or PND. No chest pain or pressure.
Objective
Labs:
06/23/23 13:30
06/26/23 05:15
Labs
Hgb 11.7 g/dL (13.0-18.0) L 06/23/23 13:30
Hct 34.0 % (39.0-52.0) L 06/23/23 13:30
Plt Count 226 10^3/uL (130-400) 06/23/23 13:30
Sodium 136 mmol/L (135-145) 06/26/23 05:15
Potassium 3.9 mmol/L (3.5-5.1) 06/26/23 05:15
BUN 14 mg/dl (9-20) 06/26/23 05:15
Creatinine 1.4 mg/dL (0.7-1.3) H 06/26/23 05:15
Glucose 130 mg/dl (70-99) H 06/26/23 05:15
Troponins
06/23/23 06/23/23 06/24/23
13:30 17:44 00:54
Troponin I 0.061 H* 0.071 H* 0.055 H*
06/24/23
06:24
Troponin I 0.044 H*
Vital Signs and I&O:
Vital Signs
Temp Pulse Resp BP Pulse Ox
97.7 F 74 20 108/68 99
06/26/23 07:53 06/26/23 08:24 06/26/23 07:53 06/26/23 08:24 06/26/23 07:53
Vital Signs
Temp Pulse Resp BP Pulse Ox
97.7 F 74 20 108/68 99
06/26/23 07:53 06/26/23 08:24 06/26/23 07:53 06/26/23 08:24 06/26/23 07:53
Intake & Output
06/24/23 06/25/23 06/26/23 06/27/23
06:59 06:59 06:59 06:59
Intake Total 900 / 900 870 / 870
Output Total 300 / 300 1325 / 1325 875 / 875
Balance -300 / -300 -425 / -425 -5 / -5
Physical Exam
Physical Exam
Gen: NAD, AAOx3
HEENT: NC/AT, sclera anicteric
Neck: No JVD
CV: RRR, NL s1/s2
Lungs: CTAB
Abd: S/ND
Ext: No LE edema
Skin: Warm, dry
Neuro: Non-focal
[2023-06-26 12:35] VITALS: BP 101/57; PULSE 72
[2023-06-26 12:45] VITALS: BP 101/57; PULSE 72
[2023-06-26] MEDS: NOVOLOG FLEXPEN-LOW RESISTANCE 1 UNITS SC (12:49)
--- NOTE | 2023-06-26 14:13 | PTCARENOTE ---
Patient ordered telemetry. Patient refusing due to allergic reaction from adhesive. Offered patient different adhesive pads but patient still refusing vehicle monitor technician. Reviewed risks with patient and he verbalizes understanding.
[2023-06-26 15:55] VITALS: BP 107/64
[2023-06-26 17:12] LABS: Glucose - Point of Care 229 mg/dl (70-99)
[2023-06-26] MEDS: NOVOLOG FLEXPEN-LOW RESISTANCE 2 UNITS SC (17:27)
[2023-06-26] MEDS: LOVENOX 40 MG SC (17:28)
[2023-06-26] MEDS: EFFEXOR 150 MG PO (17:28)
[2023-06-26] MEDS: JANUVIA 100 MG PO (17:29)
[2023-06-26] MEDS: MAGNESIUM OXIDE 500 MG PO (17:29)
[2023-06-26] MEDS: APRESOLINE 25 MG PO (17:29)
[2023-06-26] MEDS: PEPCID 40 MG PO (17:29)
[2023-06-26] MEDS: LIPITOR 40 MG PO (17:29)
--- NOTE | 2023-06-26 17:54 | W.DCSUMMARY ---
Discharge Summary
Discharge Data
Date of Admission: 06/23/23
Date of Discharge: 06/26/23
-
Pending Results: No
Hospital Course
67M CAD CABG p/w SOB progressive 1 wk.� He had a home test positive for COVID 1 1/2 weeks ago.� Completed Paxlovid.� Continued to have exertional dyspnea nonproductive cough and shortness of breath.� In the ER he was 86% on room air chest x-ray with
bilateral pleural effusions and interstitial edema.� Treated with IV diuretics he was weaned off oxygen supplementation.
Cardiac catheterization 02/08/2022 noted severe multivessel CAD, widely patent LANDRY to LAD, occlusion of [place] ramus with small caliber free radial graft to the diagonal since prior cath in 2013 elevated filling pressures
Plan was to continue aggressive medical treatment and DERMATOLOGY PHYSICIAN ASSISTANT therapy for severe ischemic cardiomyopathy.� No percutaneous options for revascularization even though stenting of left main into the circumflex was considered but was not pursued because of
the risk /benefits.
Acute on Chronic HFrEF, also post COVID hypoxia, ECHO noted worsening EF 10-15% and worsening valve disease MR and TR mod to severe. Cardiology evaluated and recommended increased lasix to 40 mg BID. Per cardiology's discussion with interventional
cardiology, no invasive intervention recommended at this time.� Outpatient follow up with patient's rate supervisor recommended.
Towards the end of patient's hospital course, he developed elevated Cr 1.4 for which patient was recommended additional day stay to insure trending down/improving prior to discharge. Patient however refused in favor of close outpatient follow up
lab work (script provided to facilitate). Otherwise medically stable, patient was discharged home with home services and outpatient follow up recommendations.
Discharge Plan
-
Patient Disposition: Home with Home Care
Discharge Diagnosis/Procedures: Acute Hypoxic Respiratory Failure due to Acute on Chronic Heart Failure with Reduced Ejection Fraction, Coronary Artery Disease, Paroxysmal Atrial Fibrillation, History Pacemaker/ICD placement, History Stroke,
diabetes, Narcolepsy, BPH, Urinary incontinence, Sleep Apnea, Depression, Recent COVID
Condition: Fair
Diet: 2 Gram Sodium and Restrict fluids to 48 oz
Activity: As tolerated
Driving Restrictions: Not until seen by your Dr
Bathing Restrictions: None
Blood Work: Please repeat CBC and BMP in 2-3 days of discharge, results to be forwarded to your primary care provider and rate supervisor (script has been provided to facilitate)
Others Tests: Follow up with Cardiology for repeat ECHO in 1 month of discharge.
Other Services: VN, PT and OT
Specialty Instructions: Weigh Daily- Call MD for wt gain/loss 3 lbs overnight/5 lbs in 1 week
Activity Restrictions/Additional Instructions:
Please follow up with your primary care provider and rate supervisor in 1 week of discharge.
famotidine 40 mg tablet 40 mg PO QPM Gastrointestinal issue
atorvastatin 40 mg tablet 40 mg PO QPM High cholesterol
hydralazine 25 mg tablet 50 mg PO DAILY Blood pressure
aspirin 81 mg chewable tablet 162 mg PO DAILY Coronary artery disease
sitagliptin phosphate 100 mg tablet (Januvia) 100 mg PO QPM Diabetes
amlodipine 10 mg tablet 10 mg PO DAILY hypertension
ascorbic acid (vitamin C) 500 mg tablet (Vitamin C) 500 mg PO DAILY Supplement
cholecalciferol (vitamin D3) 50 mcg (2,000 unit) tablet 2,000 units PO DAILY Supplement
dapagliflozin propanediol 10 mg tablet (Farxiga) 10 mg PO DAILY Diabetes
oxycodone-acetaminophen 5 mg-325 mg tablet 1 tab PO TIDPRN PRN moderate pain
cholecalciferol (vitamin D3) 25 mcg (1,000 unit) capsule (Vitamin D3) 50,000 unit PO [facility] Supplement
magnesium oxide 500 mg capsule 500 mg PO QPM Supplement
nitroglycerin 0.4 mg/hr transdermal 24 hour patch 0.4 mg transdermal DAILY Heart Disease/Condition
hydralazine 25 mg tablet 25 mg PO QPM hypertension
armodafinil 150 mg tablet (Nuvigil) 250 mg PO DAILY Narcolepsy
carvedilol 25 mg tablet 25 mg PO BID Heart Failure
metformin 1,000 mg tablet 1,000 mg PO BID@0800,1700 Diabetes
tamsulosin 0.4 mg capsule 0.4 mg PO HS Urinary Issue/BPH
venlafaxine 100 mg tablet 150 mg PO QPM Depression
furosemide 40 mg tablet 40 mg PO BID for Heart Failure
potassium chloride 20 mEq tablet,extended release 20 meq PO QPM Supplementation to prevent hypokalemia due to diuresis
Instructions: *PCP/Other Maintainer Central Office Heart Failure Instructions
Referrals:
Pearl Ramos, DO [Family Provider] - in one week
Additional Discharge Medication Instructions: Home Lasix has been increased to twice a day for better control of Heart Failure
Home potassium supplementation has also been increased to prevent hypokalemia due to diuresis. Hold potassium supplementation if not taking diuretic (lasix)
Please take medications as prescribed/recommended and follow up with primary care provider cardiology and/or other healthcare provider involved in your care for refills and/or further adjustments to your medication regimen as necessary.
Prescriptions:
New
potassium chloride 20 mEq tablet extended release
20 meq PO QPM 30 Days Qty: 30 0RF
Continued
atorvastatin 40 MG tablet
40 mg PO QPM
hydralazine 25 MG tablet
50 mg PO DAILY
aspirin 81 MG tablet,chewable
162 mg PO DAILY
Patient Comments:
Januvia 100 MG tablet
100 mg PO QPM
oxycodone-acetaminophen 5 MG/325 MG tablet
1 tab PO TIDPRN PRN (Reason: moderate pain)
Patient Comments:
03/08/2021: last filled 03/07/21, 15 tabs for 5 days from [facility]
ascorbic acid (vitamin C) [Vitamin C] 500 MG tablet
500 mg PO DAILY
amlodipine 10 MG tablet
10 mg PO DAILY
cholecalciferol (vitamin D3) 2,000 UNITS tablet
2,000 units PO DAILY
dapagliflozin propanediol [Farxiga] 10 MG tablet
10 mg PO DAILY
nitroglycerin 0.4 MG patch 24 hour
0.4 mg transdermal DAILY
cholecalciferol (vitamin D3) [Vitamin D3] 1,000 UNIT capsule
50,000 unit PO [facility]
magnesium oxide 500 MG capsule
500 mg PO QPM
hydralazine 25 mg Tablet
25 mg PO QPM
carvedilol 25 mg tablet
25 mg PO BID
tamsulosin 0.4 mg capsule
0.4 mg PO HS
metformin 1,000 mg tablet
1,000 mg PO BID@0800,1700
armodafinil [Nuvigil] 150 mg Tablet
250 mg PO DAILY
venlafaxine 100 mg Tablet
150 mg PO QPM
famotidine 40 MG tablet
40 mg PO QPM
Changed
furosemide 40 MG tablet
40 mg PO BID 30 Days Qty: 60 0RF
Discontinued
potassium chloride 10 MEQ tablet,ER particles/crystals
10 meq PO QPM
Discharge Orders:
Discharge Patient (As Directed); Ordered 06/26/23
Ordered By: Gautam Parham
Discharge Date and Time
Discharge Date/Time: 06/26/23 18:50
--- NOTE | 2023-06-26 19:11 | PTCARENOTE ---
Discharge instructions reviewed with patient and family. All verbalize understanding of teaching and deny questions. Patient's IV removed. Patient transported via wheelchair accompanied by family.
--- NOTE | 2023-06-27 07:49 | PN.CDI ---
CDI
- -
CDI:
Physician Documentation Request
Admit Date: 06/23/23 16:45
Dear Doctor Dione,
Please review the following and provide your response in the progress notes.
Clinical Indicators:
Documentation in the record on 06/25 Discharge Summary includes the diagnosis of acute hypoxic respiratory failure. The patient's respiratory clinical indicators were the following:
- 06/25 PN 'Acute hypoxic respiratory insufficiency requiring 2 L of oxygen'
- 06/25 DC Summary 'Acute Hypoxic Respiratory Failure due to Acute on Chronic Heart Failure'
- Patient on 2L O2, pulse ox > 96%
- ER Physician 'Pulse ox 87%-88% on room air with respiratory distress'
- H&P 'Oxygenating at 97-100% on 2 L at rest without signs of dysnpnea'
Please verify this diagnoses is still accurate and reflective of the patient�s condition to ensure quality of the medical record.
Acute hypoxic respiratory failure is/was present and is a clinical diagnosis based on (please include this additional support in the medical record)
After study acute hypoxic respiratory failure has been ruled out
Other
Recognized standard criteria for respiratory failure includes:
(Source: [facility] Hospitalist Feb 2013)
ABGs (1 or more)
�PO2 <60 or RA SpO2 <91%
�PcO2 >50 and pH <7.35
�pO2 decrease or pcO2 increase by 10 mmHg from baseline if known Symptoms:
�Tachypnea, SOB, dyspnea
�Pallor or cyanosis
�Anxiety or restlessness
�Use of accessory muscles
�Retractions (grunting in newborns)
�Unable to speak in complete sentences
Supplemental O2 requirement of 40% (5LPM) or more Intubation is not required
Use of terms such as suspected, likely, concern for, or probable (associated with a specific diagnosis that is being evaluated, monitored, or treated as if it exists) are acceptable and can be coded in the inpatient setting, when documented at the
time of discharge.
Thank you,
Feliz Celestin RN
CDI Specialist
Please use your independent medical judgment in providing your response.
--- NOTE | 2023-06-27 08:51 | VNURNOTE ---
Notified by [facility] intake to explore patient need for [facility] and acceptance.
Call to patient now.
Home Health Liaison spoke with patient at 0830 by phone to discuss [facility] nurse visits, schedule and homebound status. Patient is agreeable and understands that visits at home will be 2-3 x per week to assess and teach medical management. Patient
stated he has a scale and is able to log a daily weight.
Patient is aware that [facility] will contact him for start of care in 1-2 days after discharge from .
[facility] referral completed in [facility].
--- NOTE | 2023-07-06 12:42 | W.HF.CON ---
Heart Failure
- LV Function
Left ventricular function study result: LV Ejection fraction </= 35%
Ejection Fraction Percentage: 10-15
- ARNI
Patient already on ARNI: No
Heart Failure ARNI Contraindication: Acute Renal Failure, Hypotension
- ACEI/ARB
Patient already on ACEI/ARB: No
Heart Failure ACEI/ARB Contraindication: Acute Renal Failure, Hypotension
- Beta Madonna
Patient already on Evidence Based Beta Madonna: Yes
- Mineralocorticord Receptor Antagonist
Patient already on MRA: No
Heart Failure MRA Contraindication: Acute Renal Insufficiency, Hypotension
- SGLT-2 Inhibitor
Patient already on SGLT-2 Inhibitor: Yes
- NYHA CHF Classification
NYHA CHF Classification Level: Class III - Symptoms w/ min exertion, interferes w/ nml daily activity
- ACC/AHA Stage
ACC/AHA Stage: Stage C: Symptomatic Heart Failure
== END 2023-06-26 18:50 | disposition home health service (06) | DRG 291 ==
LOC: 4 EAST ACU 16:45
PROVIDERS: ADMITTING PHYSICIAN Internal Medicine; ATTENDING PHYSICIAN Internal Medicine; CONSULT PHYSICIAN Internal Medicine Cardiovascular Disease; EMERGENCY PHYSICIAN Emergency Medicine; FAMILY PHYSICIAN Internal Medicine
DX: I11.0 Hypertensive heart disease with heart failure (principal); I50.23 Acute on chronic systolic (congestive) heart failure; J96.01 Acute respiratory failure with hypoxia; I69.354 Hemiplegia and hemiparesis following cerebral infarction affecting left non-dominant side; I25.10 Atherosclerotic heart disease of native coronary artery without angina pectoris; G47.419 Narcolepsy without cataplexy; I25.5 Ischemic cardiomyopathy; I48.0 Paroxysmal atrial fibrillation; G47.33 Obstructive sleep apnea (adult) (pediatric); F17.200 Nicotine dependence, unspecified, uncomplicated; E11.9 Type 2 diabetes mellitus without complications; Z95.810 Presence of automatic (implantable) cardiac defibrillator; Z79.84 Long term (current) use of oral hypoglycemic drugs; Z79.82 Long term (current) use of aspirin; Z86.16 Personal history of COVID-19; Z95.1 Presence of aortocoronary bypass graft
CPT/HCPCS: 71046; 80048; 80053; 81003; 82248; 82962; 83735; 83880; 84145; 84443; 84484; 85025; 93005; 93306; 94660; 96374; 97162; 97165; 99285